=== PATIENT | female | born 1980 | race African-American/Black ===

== ENCOUNTER 2021-11-06 21:49 | Emergency (ER) | payer MEDICAID ==
[~2021-11-06] VITALS: Ht 160 cm; Wt 75.0 kg
[2021-11-06] MEDS ORDERED: KETOROLAC 60MG/2ML VIAL IM STA (22:06)
[2021-11-06] MEDS ORDERED: IBUP-2029 PO (22:20)
[2021-11-06] MEDS ORDERED: AMOX-424 MT (22:20)
[2021-11-06 23:05] VITALS: BP 144/86
== END 2021-11-06 23:50 | disposition home or self-care (01) ==
LOC: ER 22:05
DX: K04.7 Periapical abscess without sinus (principal); L03.211 Cellulitis of face
CPT/HCPCS: 81025; 96372; 99283; J1885

== ENCOUNTER 2023-07-17 19:19 | Emergency (ER) | payer MEDICAID ==
[~2023-07-17] VITALS: Ht 160 cm; Wt 78.0 kg
[~2023-07-17 19:19] MED LIST: AMOX-424 MT; IBUP-2029 PO
[2023-07-17 22:29] VITALS: O2SAT 99
[2023-07-18 00:30] LABS: BASOPHILS % 0.9 % (0.0-2.0); EOSINOPHILS % 1.4 % (0.0-5.0); HEMATOCRIT. 37.7 % (36.0-48.0); HEMOGLOBIN. 12.5 g/dL (12.0-16.0); LYMPHOCYTES % 38.5 % (20.0-50.0); MEAN CORPUSCULAR HEMOGLOBIN 29.1 pg (28.0-32.0); MEAN CORPUSCULAR HGB CONC 33.2 g/dL (31.0-37.0); MEAN CORPUSCULAR VOLUME 87.8 fL (81.0-99.0); MEAN PLATELET VOLUME 9.1 fl (7.4-10.4); NEUTROPHILS % 51.2 % (40.0-76.0); PLATELET 272 x1000/uL (130-400); RED CELL DISTRIBUTION WIDTH 13.1 % (11.6-14.6)
[2023-07-18 00:32] LABS: ALANINE AMINOTRANSFERASE 9 IU/L (10-49); ALBUMIN 4.6 g/dL (3.2-4.8); ASPARTATE AMINOTRANSFERASE 18 IU/L (<34); BILIRUBIN TOTAL 0.7 mg/dL (0.1-1.0); CALCIUM 9.8 mg/dL (8.7-10.4); CARBON DIOXIDE 29 mEq/L (21-32); CHLORIDE 103 mEq/L (98-107); CREATININE 0.6 mg/dL (0.6-1.0); GLUCOSE 86 mg/dL (70-105); PROTEIN TOTAL 7.8 g/dL (6.0-8.3); SODIUM 139 mEq/L (136-145); UREA NITROGEN BLOOD 5 mg/dL (9-23)
[2023-07-18 00:43] LABS: HCG SCREEN NEGATIVE
[2023-07-18 01:03] LABS: CLARITY URINE CLEAR (CLEAR); COLOR URINE YELLOW (YELLOW); GLUCOSE URINE NEGATIVE (NEGATIVE); KETONES URINE NEGATIVE (NEGATIVE); LEUKOCYTE ESTERASE URINE NEGATIVE (NEGATIVE); NITRITE URINE NEGATIVE (NEGATIVE); OCCULT BLOOD URINE NEGATIVE (NEGATIVE); PROTEIN URINE NEGATIVE (NEGATIVE); SPECIFIC GRAVITY URINE 1.008 (1.005-1.030); UROBILINOGEN URINE 0.2 E.U./dL (0.2-1.0)
[2023-07-18 03:57] VITALS: BP 148/92; PULSE 77; RESP 20; TEMP 99.2
== END 2023-07-18 04:00 | disposition home or self-care (01) ==
LOC: ER 19:19
DX: I10 Essential (primary) hypertension (principal)
CPT/HCPCS: 36415; 80053; 81003; 81025; 84703; 85025; 93005; 99284

== ENCOUNTER 2024-12-22 10:18 | Inpatient (IN) | payer OTHER, MEDICAID ==
[~2024-12-22] VITALS: Ht 167.6 cm; Wt 77.1 kg
[2024-12-22 13:20] LABS: CLARITY URINE CLOUDY (CLEAR); COLOR URINE DARK YELLOW (YELLOW); GLUCOSE URINE NEGATIVE (NEGATIVE); KETONES URINE NEGATIVE (NEGATIVE); LEUKOCYTE ESTERASE URINE 1+ (NEGATIVE); NITRITE URINE NEGATIVE (NEGATIVE); OCCULT BLOOD URINE 3+ (NEGATIVE); PROTEIN URINE TRACE (NEGATIVE); SPECIFIC GRAVITY URINE 1.016 (1.005-1.030); UROBILINOGEN URINE 0.2 E.U./dL (0.2-1.0)
[2024-12-22 13:35] LABS: BACTERIA URINE 1+; RBC URINE TNTC /hpf (0-2); SQUAMOUS EPITHELIAL CELL URINE 2+ /lpf (RARE/1+); YEAST URINE NONE SEEN
[2024-12-22 14:23] LABS: BASOPHILS % 0.6 % (0.0-2.0); EOSINOPHILS % 1.5 % (0.0-5.0); HEMATOCRIT. 37.7 % (36.0-48.0); HEMOGLOBIN. 12.8 g/dL (12.0-16.0); LYMPHOCYTES % 32.1 % (20.0-50.0); MEAN CORPUSCULAR HEMOGLOBIN 28.4 pg (28.0-32.0); MEAN CORPUSCULAR HGB CONC 33.9 g/dL (31.0-37.0); MEAN CORPUSCULAR VOLUME 83.9 fL (81.0-99.0); MEAN PLATELET VOLUME 8.5 fl (7.4-10.4); MONOCYTES % 7.9 % (2.0-8.0); NEUTROPHILS % 57.9 % (40.0-76.0); PLATELET 284 x1000/uL (130-400); RED BLOOD CELL COUNT 4.49 mill/uL (4.2-5.4); RED CELL DISTRIBUTION WIDTH 12.6 % (11.6-14.6); WHITE BLOOD COUNT 7.2 x1000/uL (4.5-11.0)
[2024-12-22 14:31] LABS: CHLORIDE 103 mEq/L (98-107); POTASSIUM 3.5 mEq/L (3.5-5.1); SODIUM 137 mEq/L (136-145)
[2024-12-22 14:32] LABS: CALCIUM 9.5 mg/dL (8.7-10.4); CARBON DIOXIDE 28 mEq/L (21-32)
[2024-12-22 14:37] LABS: CREATININE 0.6 mg/dL (0.6-1.0); GLUCOSE 86 mg/dL (70-105); UREA NITROGEN BLOOD 6 mg/dL (9-23)
[2024-12-22 14:42] LABS: T4 FREE 1.09 ng/dL (0.89-1.76); THYROID STIMULATING HORMONE 0.69 uIU/mL (0.55-4.78)
[2024-12-22 15:21] VITALS: PULSE 76; RESP 20
[2024-12-22] MEDS: RACEPINEPHRINE 2.25% 0.5ML NEB VIAL HHN NR (15:21)
[2024-12-22] MEDS: CEFTRIAXONE 1GM/50ML 50 ML IV NR (15:45)
[2024-12-22] MEDS: DEXAMETHASONE 10 MG/ML VIAL IV NR (15:45)
[2024-12-22] MEDS: VANCOMYCIN 1G PREMIX 200 ML IV NR (15:46)
[2024-12-22] MEDS: SODIUM CHLORIDE 0.9% (SEPSIS BOLUS) IV NR (15:46)
[2024-12-22] MEDS ORDERED: ONDANSETRON HCL 4MG/2ML INJ IV PRN (18:00)
[2024-12-22] MEDS ORDERED: ZOLPIDEM TARTRATE 5MG TABLET PO PRN (18:00)
[2024-12-22] MEDS ORDERED: CLONIDINE 0.1MG TABLET PO PRN (18:00)
[2024-12-22] MEDS ORDERED: DOCUSATE SODIUM 100MG CAPSULE PO PRN (18:00)
[2024-12-22] MEDS ORDERED: ACETAMINOPHEN 325MG TABLET PO PRN ×2 (18:00)
[2024-12-22] MEDS ORDERED: DIPHENHYDRAMINE 50MG/ML VIAL IV PRN (18:00)
[2024-12-22] MEDS ORDERED: ACETAMINOPHEN 650MG SUPP PR PRN ×2 (18:00)
[2024-12-22] MEDS ORDERED: METHYLPREDNISOLONE SOD SUCC 40MG/ML (ACT-O-VIAL) IV SCH (18:10)
[2024-12-22 20:00] VITALS: BP 105/62; PULSE 73; RESP 20; TEMP 36.5; O2SAT 96
[2024-12-22] MEDS: RACEPINEPHRINE 2.25% 0.5ML NEB VIAL HHN SCH (20:00)
[2024-12-22] MEDS: IPRATROPIUM/ALBUTEROL 0.5-3(2.5)MG/3ML NEB HHN SCH (22:00)
[2024-12-22] MEDS: CEFTRIAXONE 2GM/50ML 50 ML IV NR (22:52)
[2024-12-22] MEDS: SODIUM CHLORIDE 0.9% 1,000 ML IV SCH (22:53)
[2024-12-22] MEDS ORDERED: AMLO5TAB88 PO (23:05)
[2024-12-22 23:32] VITALS: PULSE 60; RESP 22; O2SAT 97
[2024-12-23] VITALS (11 sets, daily range): BP systolic 114–134; BP diastolic 59–89; PULSE 62–104; RESP 14–20; TEMP 35.6–36.8; O2SAT 95–100
[2024-12-23] MEDS: DEXAMETHASONE 10 MG/ML VIAL IV SCH ×2 (00:18→16:30)
[2024-12-23] MEDS: VANCOMYCIN 1G PREMIX 200 ML IV SCH ×2 (05:38→20:57)
[2024-12-23] MEDS: CEFTRIAXONE 2GM/50ML 50 ML IV SCH (20:56)
[2024-12-24] VITALS (7 sets, daily range): BP systolic 114–143; BP diastolic 68–83; PULSE 76–107; RESP 18–20; TEMP 36.5–37; O2SAT 97–100
[2024-12-24 07:39] LABS: CHLORIDE 108 mEq/L (98-107); POTASSIUM 3.4 mEq/L (3.5-5.1); SODIUM 141 mEq/L (136-145)
[2024-12-24 07:40] LABS: CALCIUM 8.8 mg/dL (8.7-10.4); CARBON DIOXIDE 24 mEq/L (21-32)
[2024-12-24 07:45] LABS: CREATININE 0.6 mg/dL (0.6-1.0); GLUCOSE 153 mg/dL (70-105); UREA NITROGEN BLOOD 7 mg/dL (9-23)
[2024-12-24 07:57] LABS: HEMATOCRIT. 35.6 % (36.0-48.0); MEAN CORPUSCULAR HEMOGLOBIN 28.2 pg (28.0-32.0); MEAN CORPUSCULAR HGB CONC 33.7 g/dL (31.0-37.0); MEAN CORPUSCULAR VOLUME 83.8 fL (81.0-99.0); MEAN PLATELET VOLUME 9.4 fl (7.4-10.4); PLATELET 301 x1000/uL (130-400); RED BLOOD CELL COUNT 4.24 mill/uL (4.2-5.4); RED CELL DISTRIBUTION WIDTH 13.2 % (11.6-14.6)
[2024-12-24 08:55] LABS: DIFFERENTIAL COMMENT 1
[2024-12-24 16:34] LABS: PLATELET ESTIMATE NORMAL
[2024-12-24] MEDS ORDERED: VANCOMYCIN 1.25GM/250ML 250 ML IV SCH (21:00)
== END 2024-12-24 13:20 | disposition home or self-care (01) | DRG 607 ==
LOC: ER 10:33 → EDBEDREQ 14:44 → 7WST 19:17
PROVIDERS: ADMIT Internal Medicine; ATTEND Internal Medicine
DX: R22.1 Localized swelling, mass and lump, neck (principal); I10 Essential (primary) hypertension; Z79.899 Other long term (current) drug therapy
CPT/HCPCS: 36415; 70360; 70491; 71045; 80048; 80202; 81003; 83605; 84145; 84439; 84443; 85025; 87070; 87430; 93005; 94070; 94640; 94664; 94760; 98960; 99285; A4606; J0696; J1100; J3370